=== PATIENT | male | born 1960 | race Two or more races ===

== ENCOUNTER 2020-07-04 17:50 | Outpatient (REF) | payer OTHER, SELFPAY | END 2020-07-04 17:51 | disposition home or self-care (01) | LOC: HO.LAB 17:50 | PROVIDERS: Visit Provider Internal Medicine | DX: Z20.828 Contact with and (suspected) exposure to other viral communicable diseases (principal) | CPT/HCPCS: C9803; U0003 ==

== ENCOUNTER → 2020-09-12 13:21 | Outpatient (BNVA) | payer OTHER, SELFPAY | PROVIDERS: PCP Internal Medicine; Visit Provider Internal Medicine | DX: S60.152A Contusion of left little finger with damage to nail, initial encounter (principal); X58.XXXA Exposure to other specified factors, initial encounter | CPT/HCPCS: 11740; 73130; 90714; 99202 ==

== ENCOUNTER → 2020-09-18 10:29 | Outpatient (BNVA) | payer OTHER, SELFPAY | PROVIDERS: PCP Internal Medicine; Visit Provider Internal Medicine | DX: S61.307A Unspecified open wound of left little finger with damage to nail, initial encounter (principal); S60.152A Contusion of left little finger with damage to nail, initial encounter; X58.XXXA Exposure to other specified factors, initial encounter | CPT/HCPCS: 99213 ==

== ENCOUNTER 2021-07-18 08:25 | Outpatient (REF) | payer OTHER, SELFPAY ==
--- NOTE | 2021-07-18 08:38 | EMG_ITS ---
Bilateral median and ulnar motor and sensory studies were performed. Bilateral radial sensory studies were performed and paraspinal muscles were tested. IMPRESSION: 1. Aiuf-hm-zeyrajrk bilateral median neuropathy across carpal tunnel. 2. Ckzw-lu-haxuhyyd bilateral ulnar neuropathy across cubital tunnel. MD HAMILTON Elder/ILENEL / [phone]
== END 2021-07-18 08:26 | disposition home or self-care (01) ==
LOC: HO.NEURO 08:25
PROVIDERS: Visit Provider Internal Medicine
DX: G56.03 Carpal tunnel syndrome, bilateral upper limbs (principal)
CPT/HCPCS: 95886; 95911

== ENCOUNTER 2021-12-04 09:18 | Outpatient (REF) | payer OTHER, SELFPAY ==
[2021-12-04 10:39] LABS: Alanine Aminotransferase 35 U/L (0-40); Albumin Level 4.5 g/dL (3.5-5.0); Alkaline Phosphatase 55 U/L (39-117); Anion Gap 10 (12-20); Aspartate Amino Transferase 29 U/L (5-37); Bilirubin Total 0.4 mg/dL (0.0-1.0); Blood Urea Nitrogen 15 mg/dL (9-16); Calcium 9.7 mg/dL (8.4-10.2); Carbon Dioxide 31 mmol/L (22-29); Chloride 105 mmol/L (96-108); Estimated Glomerular Filt Rate > 60; Glucose Random 122 mg/dL (60-115); Potassium 5.3 mmol/L (3.3-5.1); Sodium 141 mmol/L (135-145); Total Protein 6.9 g/dL (6.5-8.0)
[2021-12-04 11:06] LABS: Estimated Average Glucose 160 mg/dL; Hemoglobin A1c % 7.2 %
== END 2021-12-04 09:19 | disposition home or self-care (01) ==
LOC: HO.LAB 09:18
PROVIDERS: PCP Internal Medicine; Visit Provider Internal Medicine
DX: E11.9 Type 2 diabetes mellitus without complications (principal); I10 Essential (primary) hypertension; G56.03 Carpal tunnel syndrome, bilateral upper limbs; Z68.30 Body mass index [BMI] 30.0-30.9, adult
CPT/HCPCS: 36415; 80053; 83036; 84443

== ENCOUNTER 2024-10-20 09:23 | Outpatient (REF) | payer OTHER, SELFPAY ==
--- NOTE | ~2024-10-20 | XR_ITS ---
EXAMINATION: XR SHOULDER 2 OR MORE VIEWS LEFT HISTORY: M25.512 - Pain in left shoulder COMPARISON: There are no prior studies available for comparison. FINDINGS: Three views of the left shoulder are submitted. Osseous mineralization is normal. There is no fracture or dislocation. The glenohumeral joint is maintained. There is mild to moderate narrowing of the AC joint. The soft tissues are unremarkable. XR/XR shoulder LT min 2V IMPRESSION: Mild to moderate narrowing of the AC joint. Electronically signed by: Clint Loco MD 10/21/2024 08:40 AM EDT
== END 2024-10-20 09:24 | disposition home or self-care (01) ==
LOC: HO.HOSX 09:23
PROVIDERS: Visit Provider Physician Assistant
DX: M25.512 Pain in left shoulder (principal); M19.012 Primary osteoarthritis, left shoulder
CPT/HCPCS: 73030

== ENCOUNTER 2024-10-20 14:48 | Outpatient (AMB) | payer OTHER, SELFPAY ==
--- NOTE | 2024-10-20 14:50 | A.OFFVIS_ITS ---
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 Patient reports that he has had pain in the right shoulder. His pain is felt all the time, and some mild weakness. Denies injury. No previous treatments for the left shoulder. 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 He states the pain started 3 months ago. He has pain with reaching, pain with reaching behind his back. He has some pain with lifting objects . He has nighttime pain. [facility] Surgical History (Updated 10/20/24 @ 15:03 by Ann Dixon [facility]) History of carpal tunnel release of both wrists Review of Systems Const All systems reviewed & are unremarkable except as noted in HPI and below Physical Exam Const General: cooperative and no acute distress Orientation/consciousness: patient oriented x3 Resp Effort & Inspection: normal respiratory effort and able to speak in complete sentences Cardio Peripheral pulses: Peripheral pulses 2+ throughout Neuro General: patient oriented x3 Extrem Other: left shoulder normal to inspection , FF 45, ER 90 , IR back pocket. + Paez, + cross body abduction. 5/5 RTC strength. NVI. Results Reviewed Results Reviewed: Xrays were obtained in the office today and personally reviewed by me of the left shoulder show mild ac joint oa . Assessment & Plan Assessment & Plan (1) Osteoarthritis of left acromioclavicular joint: Code(s): M19.012 - Primary osteoarthritis, left shoulder Category: Medical (2) Tendonitis of left rotator cuff: Code(s): M75.82 - Other shoulder lesions, left shoulder Category: Medical Plan We discussed options which include PT, NSAIDs and injections. She will defer on the injection today and proceed with PT and NSAIDs. If symptoms persist she will contact me for an injection, otherwise, prn. Orders: Orders PT Evaluation and Treatment Today M19.012 - Primary osteoarthritis, left shoulder XR shoulder LT min 2V Today M25.512 - Pain in left shoulder Medications: New celecoxib (Celebrex) 200 mg PO BID 60 caps 3RF 30 days Coding Level of Care Code New Pt Level 3 (58111) Complex EM visit Add On G2211 Diagnoses Osteoarthritis of left acromioclavicular joint M19.012 Tendonitis of left rotator cuff M75.82
== END 2024-10-20 15:15 | disposition home or self-care (01) ==
LOC: HO.HOS 14:49
PROVIDERS: PCP Internal Medicine; Visit Provider Physician Assistant
DX: M19.012 Primary osteoarthritis, left shoulder (principal); M75.82 Other shoulder lesions, left shoulder
CPT/HCPCS: 99203

== ENCOUNTER → 2024-10-20 14:52 | Outpatient (BNV) | payer OTHER, SELFPAY | PROVIDERS: Visit Provider Radiology Diagnostic Radiology | DX: M24.812 Other specific joint derangements of left shoulder, not elsewhere classified (principal) | CPT/HCPCS: 73030 ==

== ENCOUNTER 2024-12-16 14:28 | Outpatient (AMB) | payer OTHER, SELFPAY ==
--- NOTE | 2024-12-16 14:34 | MHC.OFFVIS ---
Intake Visit Reasons: INJ-LT shoulder pain Intake Note: Stevie 64 yr old male presents today for his left shoulder injection. At her last visit he defer on the injection and wanted to start with PT and NSAIDs. States pain has worsen and would like to have an injection today. Allergies atorvastatin Allergy (Unknown, Verified 12/16/24 14:41) adverse affect lisinopril Adverse Reaction (Unknown, Verified 12/16/24 14:41) unknown HPI HPI INJ-LT shoulder pain: Details: 64-year-old gentleman returns to the office today for a follow-up left shoulder pain. He continues to have discomfort with daily activities especially at nighttime. He was interested in steroid injection today. [facility] Surgical History (Updated 10/20/24 @ 15:03 by Ann Dixon [facility]) History of carpal tunnel release of both wrists Review of Systems Const All systems reviewed & are unremarkable except as noted in HPI and below Physical Exam Const General: cooperative and no acute distress Orientation/consciousness: patient oriented x3 Resp Effort & Inspection: normal respiratory effort and able to speak in complete sentences Cardio Peripheral pulses: Peripheral pulses 2+ throughout Neuro General: patient oriented x3 Extrem Other: left shoulder normal to inspection , FF 45, ER 90 , IR back pocket. + Paez, + cross body abduction. 5/5 RTC strength. NVI. Office Procedures AMB Joint Injection/Aspiration Joint Injection/Aspiration Primary Site: left shoulder Prep: site was prepped using aseptic technique, ethochloride spray was applied and injection warnings given Injected: 40 mg of, DepoMedrol, with 8 mL of, 1% plain lidocaine and in the subcromial space Approach Used: posterolateral Procedure: The patient tolerated the procedure well and there was some relief with the local anesthesia Coding 23396 - Glenohumeral/Tronchanteric Bursa/Intraarticular Procedure code (CPT) selection complete Assessment & Plan Assessment & Plan (1) Tendonitis of left rotator cuff: Code(s): M75.82 - Other shoulder lesions, left shoulder Category: Medical (2) Osteoarthritis of left acromioclavicular joint: Code(s): M19.012 - Primary osteoarthritis, left shoulder Category: Medical Plan We discussed options today, which include steroid injection. The patient did consent to move forward with the injection, which was tolerated well.? An order for physical therapy has been placed and he will make an appointment with them. I recommended rest, ice and elevation and OTC antiinflammatories prn for discomfort. If symptoms persist over the next 6-8 weeks, they will contact our office, otherwise, prn We also discussed their diabetes and the effect the steroid can have on thier blood glucose levels; therefore, they will continue to monitor these very closely over the next 72 hours Coding Level of Care Code Est Pt Level 3 (22476) Complex EM visit Add On G2211 Diagnoses Tendonitis of left rotator cuff M75.82 Osteoarthritis of left acromioclavicular joint M19.012 CPT Codes Coding - Joint 7: 35233 - Glenohumeral/Tronchanteric Bursa/Intraarticular ([id number])
== END 2024-12-16 14:46 | disposition home or self-care (01) ==
LOC: HO.HOS 14:29
PROVIDERS: Visit Provider Physician Assistant
DX: M75.82 Other shoulder lesions, left shoulder (principal); M19.012 Primary osteoarthritis, left shoulder
CPT/HCPCS: 20610; 99213

== ENCOUNTER → 2024-12-16 14:28 | Outpatient (BNVA) | payer OTHER, SELFPAY | PROVIDERS: Visit Provider Physician Assistant | DX: M19.012 Primary osteoarthritis, left shoulder (principal); M75.82 Other shoulder lesions, left shoulder | CPT/HCPCS: 20610; J1010; J2003 ==

== ENCOUNTER 2025-05-19 14:34 | Outpatient (AMB) | payer OTHER, SELFPAY ==
[2025-05-19 14:50] VITALS: BMI 26.8
--- NOTE | 2025-05-19 14:50 | MHC.OFFVIS ---
Vital Signs 05/19/25 14:50 Height 5 ft 10 in Weight 187 lb BMI 26.8 Intake Visit Reasons: OV- LT shoulder pain Intake Note: Stevie is a 65 year old male who presents today for a follow up of left shoulder OA, last injection on 12/16/24. Patient reports last injection did not help at all. He continues to have throbbing pain in his shoulder that travels down his arm and up towards his neck. Complaints of limited ROM and weakness in arm. His pain increases at night with sleeping. Denies injury. PCP recently prescribed meloxicam with no relief. Allergies No Known Allergies Allergy (Verified 05/19/25 14:51) Medication List - Last Reconciled 05/19/25 by Stephanie Landeros PA-C aspirin 81 mg PO DAILY fenofibrate 160 mg PO DAILY metformin 1,000 mg PO BID olmesartan-hydrochlorothiazide 20-12.5 mg 1 tab PO DAILY omeprazole 20 mg PO DAILY rosuvastatin 40 mg PO DAILY HPI HPI OV- LT shoulder pain: Details: 65 yo male returns to the office today for ongoing left shoulder pain. He also c/o pain in the elbow with lifting and repetitive motion. The shoulder pain is located on top of the shoulder and he states it is worse at night. He states the injection was helpful for a few days. 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 left Elbow ROM full without pain. Tenderness over the lateral epicondyle and pain with resisted wrist extension. NVI. Assessment & Plan Assessment & Plan (1) Osteoarthritis of left acromioclavicular joint: Code(s): M19.012 - Primary osteoarthritis, left shoulder Category: Medical (2) Lateral epicondylitis, left elbow: Code(s): M77.12 - Lateral epicondylitis, left elbow Category: Medical Plan We discussed options today which includes an ac joint injection to see if this helps improve his symptoms since he does have + exam findings for the ac joint. I also stressed the importance of PT which I did re order. I explained the elbow pain is often an over use condition and modifying his activity can be helpful, but also the PT can help with recovery. I did place an order for an ac joint injection to be performed under fluoroscopy. I explained the hospital will contact him to schedule. He was also given the contact information for PT to make an appt. If he continues to experience symptoms 6-8 weeks post injection, he can contact our office and I will order an MRI; otherwise, he will f/u prn. Orders: Orders PT Evaluation and Treatment Today M19.012 - Primary osteoarthritis, left shoulder, M75.82 - Other shoulder lesions, left shoulder, M77.12 - Lateral epicondylitis, left elbow FL Guided Asp or Inj Med Jt LT Today M19.012 - Primary osteoarthritis, left shoulder Coding Level of Care Code Est Pt Level 3 (06769) Complex EM visit Add On G2211 Diagnoses Osteoarthritis of left acromioclavicular joint M19.012 Lateral epicondylitis, left elbow M77.12
== END 2025-05-19 15:17 | disposition home or self-care (01) ==
LOC: HO.HOS 14:35
PROVIDERS: Visit Provider Physician Assistant
DX: M19.012 Primary osteoarthritis, left shoulder (principal); M77.12 Lateral epicondylitis, left elbow
CPT/HCPCS: 99213

== ENCOUNTER 2025-05-26 12:46 | Outpatient (REF) | payer OTHER, SELFPAY ==
--- NOTE | ~2025-05-26 | FL_ITS ---
EXAMINATION: Fluoroscopy guided left AC joint steroid injection. COMPARISON: None. TECHNIQUE: Following explaining fluoroscopy-guided left AC joint injection procedure, benefits and risk, a written consent was obtained. Patient was placed supine on fluoroscopy table and left AC joint is marked on the skin. Marked site was cleaned and draped in usual sterile manner. A 25-gauge 1/2 inch needle was then advanced from the skin into the joint space and 1 and cc of nonionic contrast injected and single image obtained. Subsequently 1 mL of 1% lidocaine and 40 mg of Depo-Medrol was injected into left AC joint and needle withdrawn. Complete hemostasis achieved. A simple bandage applied post procedure. FINDINGS/ FL/FL Guided Asp or Inj Med Jt LT IMPRESSION: The AC joint is maintained normal. Successful fluoroscopy-guided left AC joint steroid injection performed. Fluoroscopy time: 2 minutes and 18 seconds. DAP: 637.6 mGy/cm. Electronically signed by: Jona Roper MD 05/26/2025 02:12 PM EDT
[2025-05-26] MEDS: iohexoL 300 MG/ML 50 ML INFUS..BTL INTRAARTIC (13:58)
== END 2025-05-26 12:47 | disposition home or self-care (01) ==
LOC: HO.XRAY 12:46
PROVIDERS: PCP Internal Medicine; Visit Provider Physician Assistant
DX: M19.012 Primary osteoarthritis, left shoulder (principal)
CPT/HCPCS: 20605; 77002; J1010; Q9967

== ENCOUNTER → 2025-05-26 12:47 | Outpatient (BNV) | payer OTHER, SELFPAY | PROVIDERS: PCP Internal Medicine; Visit Provider Radiology Diagnostic Radiology | DX: M19.012 Primary osteoarthritis, left shoulder (principal) | CPT/HCPCS: 20605; 77002 ==